=== PATIENT | male | born 1995 | race Asian ===

== ENCOUNTER 2018-05-27 00:45 | Emergency (ER) | payer OTHER ==
[~2018-05-27] VITALS: Ht 162.6 cm; Wt 63.5 kg
[2018-05-27] MEDS ORDERED: KETO10TA2 PO (07:03)
== END 2018-05-27 07:36 | disposition home or self-care (01) ==
LOC: ER 00:45
DX: N45.1 Epididymitis (principal); N50.811 Right testicular pain